=== PATIENT | male | born 1935 | race Caucasian/White ===

== ENCOUNTER 2016-07-27 19:25 | Emergency (ER) | payer OTHER ==
--- NOTE | 2016-07-27 19:35 | EDPHY ---
H & P Time Seen by Provider: 07/27/16 19:30 HPI/ROS: CHIEF COMPLAINT: Chest pain and pressure HISTORY OF PRESENT ILLNESS: The patient presents to the ED with intermittent chest pain and pressure. The patient 1st experienced symptoms on Thursday at rest. They lasted approximately 1 hour. The patient stated he had a pressure across his chest with heaviness in his arms and shoulders. Tonight at 6:00 p.m. the patient's symptoms returned. The patient stated his symptoms have improved approximately 60 minutes after beginning. He complains currently of 1/ 10 and chest pressure and heaviness in his shoulders. The patient states his symptoms are similar to prior angina he has had. The patient did undergo a cardiac stenting in 2014 secondary to a critical LAD stenosis. The patient does have a history of hypertension, hyperlipidemia but denies diabetes or current smoking. The patient is under the care of Dr. Alonso from [facility]. REVIEW OF SYSTEMS: A comprehensive 10 point review of systems is otherwise negative aside from elements mentioned in the history of present illness. Source: Patient Exam Limitations: No limitations - Medical/Surgical History Hx Asthma: No Hx Chronic Respiratory Disease: No Hx Diabetes: No Hx Cardiac Disease: No Hx Renal Disease: No Hx Cirrhosis: No Hx Alcoholism: No Hx HIV/AIDS: No Hx Splenectomy or Spleen Trauma: No Other PMH: HTN, Cholestrol - Social History Smoking Status: Never smoked - Physical Exam Exam: General Appearance: Alert, no distress Eyes: Pupils equal and round no pallor or injection ENT, Mouth: Mucous membranes moist Respiratory: There are no retractions, lungs are clear to auscultation Cardiovascular: Regular rate and rhythm Gastrointestinal: Abdomen is soft and nontender, no masses, bowel sounds normal Neurological: A&O, normal motor function, normal sensory exam, normal cranial nerves Skin: Warm and dry, no rashes Musculoskeletal: Neck is supple nontender Extremities: symmetrical, full range of motion Constitutional: Initial Vital Signs Temperature (C) 36.7 C 07/27/16 19:25 Heart Rate 60 07/27/16 19:25 Respiratory Rate 16 07/27/16 19:25 Blood Pressure 192/72 H 07/27/16 19:25 O2 Sat (%) 96 07/27/16 19:25 O2 Delivery Mode Room Air Allergies/Adverse Reactions: Penicillins Allergy (Verified 07/27/16 19:37) Home Medications: Medication Instructions Recorded Aspirin EC [Aspirin EC 81 mg (*)] 81 mg PO DAILY 07/27/16 Finasteride [Proscar 5 MG (*)] 5 mg PO DAILY 07/27/16 Herbals/Supplements -Info Only 1 ea PO DAILY 07/27/16 Losartan Potassium [Cozaar 25 mg 25 mg PO DAILY 07/27/16 (*)] Metoprolol Succinate Xr [Toprol Xl 25 mg PO DAILY 07/27/16 25 mg (*)] Multivitamins [Multivitamin (*)] 1 each PO DAILY 07/27/16 Nitroglycerin [Nitrostat 0.4 mg 0.4 mg SL Q5M PRN 07/27/16 (*)] Medical Decision Making - Diagnostics EKG Interpretation: EKG: Complete interpretation has been separately recorded in the [facility] archive. Summary impression: Sinus rhythm Imaging Results: Imaging Impressions Chest X-Ray 07/27/16 19:39 Impression: 1. No active cardiopulmonary disease seen. 2. Calcified subcarinal nodes. ED Course/Re-evaluation: The patient presents to the ED with symptoms reminiscent of his prior angina. His initial EKG demonstrates no evidence of ST segment elevation myocardial infarction. There is some nonspecific ST T wave changes noted in the precordial leads. The patient received a 325 mg dose of aspirin. He received 1 sublingual nitroglycerin for his ongoing symptoms of chest discomfort and shoulder heaviness. I reviewed the patient's past medical records including the results of his angiogram from 2014. The patient was placed on a quality assurance monitor chassis. Given the patient's history I did tell him I wanted to admit him to the hospital for observation this evening. The patient is able to articulate the risks and benefits of refusing admission. 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 The patient does understand that he can return to the ED at any time should he reconsider his decision to refuse admission or should he have recurrent chest pain. Differential Diagnosis: Differential diagnosis considered includes acute coronary syndrome, metabolic abnormality - Data Points Laboratory Results: Laboratory Results 07/27/16 19:35 07/27/16 19:35 07/27/16 07/27/16 19:35 19:35 WBC 7.79 10^3/uL 10^3/uL (3.80-9.50) RBC 4.69 10^6/uL 10^6/uL (4.40-6.38) Hgb 13.9 g/dL g/dL (13.7-17.5) Hct 41.7 % % (40.0-51.0) MCV 88.9 fL fL (81.5-99.8) MCH 29.6 pg pg (27.9-34.1) MCHC 33.3 g/dL g/dL (32.4-36.7) RDW 13.2 % % (11.5-15.2) Plt Count 162 10^3/uL 10^3/uL (150-400) MPV 11.4 fL fL (8.7-11.7) Neut % (Auto) 67.1 % % (39.3-74.2) Lymph % (Auto) 19.9 % % (15.0-45.0) [place] % (Auto) 10.0 % % (4.5-13.0) Eos % (Auto) 2.1 % % (0.6-7.6) Baso % (Auto) 0.6 % % (0.3-1.7) Nucleat RBC Rel Count 0.0 % % (0.0-0.2) Absolute Neuts (auto) 5.23 10^3/uL 10^3/uL (1.70-6.50) Absolute Lymphs (auto) 1.55 10^3/uL 10^3/uL (1.00-3.00) Absolute Monos (auto) 0.78 10^3/uL 10^3/uL (0.30-0.80) Absolute Eos (auto) 0.16 10^3/uL 10^3/uL (0.03-0.40) Absolute Basos (auto) 0.05 10^3/uL 10^3/uL (0.02-0.10) Absolute Nucleated RBC 0.00 10^3/uL 10^3/uL (0-0.01) Immature Gran % 0.3 % % (0.0-1.1) Immature Gran # 0.02 10^3/uL 10^3/uL (0.00-0.10) Sodium 139 mEq/L mEq/L (134-144) Potassium 4.0 mEq/L mEq/L (3.5-5.2) Chloride 101 mEq/L mEq/L (97-110) Carbon Dioxide 31 mEq/l mEq/l (22-31) Anion Gap 7 mEq/L L mEq/L (8-16) BUN 17 mg/dL mg/dL (7-23) Creatinine 0.9 mg/dL mg/dL (0.7-1.3) Estimated GFR > 60 Glucose 93 mg/dL mg/dL (70-100) Calcium 9.1 mg/dL mg/dL (8.5-10.4) Troponin I < 0.012 ng/mL ng/mL (0-0.034) Medications Given: Discontinued Medications Aspirin (Aspirin) 324 mg PO EDNOW ONE Stop: 07/27/16 19:40 Last Admin: 07/27/16 19:47 Dose: 324 mg Nitroglycerin (Nitrostat) 0.4 mg SL Q5M PRN PRN Reason: Chest Pain Stop: 07/27/16 19:50 Last Admin: 07/27/16 19:47 Dose: 0.4 mg Departure - Departure Disposition: Against Medical Advice Clinical Impression: Chest pain Condition: Good
--- NOTE | 2016-07-27 19:35 | CPEKG ---
Heart Rate: 59 RR Interval: 1017 P-R Interval: 212 QRSD Interval: 82 QT Interval: 408 QTC Interval: 405 P [place]: 77 QRS [place]: -14 T Wave [place]: 64 EKG Severity - NORMAL ECG - EKG Impression: SINUS RHYTHM Electronically Signed By: mG Woodall 27-Jul-2016 21:14:21
[2016-07-27 19:37] VITALS: RESP 16; TEMP 98.1
[2016-07-27] MEDS ORDERED: ASPIRIN 81 MG CHEWABLE TAB PO ONE (19:39)
[2016-07-27] MEDS ORDERED: NITROGLYCERIN 0.4 MG BTL SL PRN (19:39)
[2016-07-27 19:43] LABS: % IMMATURE GRANULYOCYTES 0.3 % (0.0-1.1); ABSOLUTE IMMATURE GRANULOCYTES 0.02 10^3/uL (0.00-0.10); ADD DIFF? NO; ADD MORPH? NO; ADD SCAN? NO; ATYPICAL LYMPHOCYTE FLAG 0 (0-99); FRAGMENT RBC FLAG 0 (0-99); HEMATOCRIT 41.7 % (40.0-51.0); HEMOGLOBIN 13.9 g/dL (13.7-17.5); LEFT SHIFT FLG 0 (0-99); LIPEMIA HEMOLYSIS FLAG 80 (0-99); MEAN CELL HEMOGLOBIN 29.6 pg (27.9-34.1); MEAN CELL HEMOGLOBIN CONCENTR. 33.3 g/dL (32.4-36.7); MEAN CELL VOLUME 88.9 fL (81.5-99.8); MEAN PLATELET VOLUME 11.4 fL (8.7-11.7); PLATELET CLUMPS FLAG 0 (0-99); PLATELET COUNT 162 10^3/uL (150-400); RED BLOOD CELL COUNT 4.69 10^6/uL (4.40-6.38); RED CELL DISTRIBUTION WIDTH 13.2 % (11.5-15.2)
[2016-07-27 19:53] LABS: ANION GAP 7 mEq/L (8-16); CALCIUM 9.1 mg/dL (8.5-10.4); CARBON DIOXIDE 31 mEq/l (22-31); CHLORIDE 101 mEq/L (97-110); CREATININE 0.9 mg/dL (0.7-1.3); GLOMERULAR FILTRATION RATE > 60; GLUCOSE 93 mg/dL (70-100); SODIUM 139 mEq/L (134-144)
[2016-07-27 20:04] LABS: TROPONIN I < 0.012 ng/mL (0-0.034)
[2016-07-27 21:16] VITALS: BP 154/78; PULSE 53; O2SAT 95
== END 2016-07-27 21:14 | disposition left against medical advice (07) ==
LOC: UNDOADMOB 20:40
DX: R07.89 Other chest pain (principal); I10 Essential (primary) hypertension; Z79.82 Long term (current) use of aspirin

== ENCOUNTER → 2016-07-29 | Outpatient (CLI) | payer OTHER | LOC: BHLMT 08:30 | PROVIDERS: ATTEND Internal Medicine Interventional Cardiology | DX: R07.9 Chest pain, unspecified (principal); I25.10 Atherosclerotic heart disease of native coronary artery without angina pectoris; I10 Essential (primary) hypertension | CPT/HCPCS: 78452; 93017; A9500; J2785 ==

== ENCOUNTER → 2016-10-14 | Outpatient (CLI) | payer OTHER | LOC: FIMAGING 09:12 | PROVIDERS: ATTEND Family Medicine | DX: R13.14 Dysphagia, pharyngoesophageal phase (principal); K29.90 Gastroduodenitis, unspecified, without bleeding; K22.4 Dyskinesia of esophagus ==

== ENCOUNTER → 2016-12-03 | Outpatient (CLI) | payer OTHER | LOC: FIMAGING 08:32 | PROVIDERS: ATTEND Internal Medicine | DX: R10.13 Epigastric pain (principal) ==